=== PATIENT | female | born 1990 | race Caucasian/White ===

== ENCOUNTER 2023-03-02 14:26 | Emergency (ER) | payer SELFPAY ==
[2023-03-02 14:30] VITALS: BP 142/87; PULSE 73; RESP 18; TEMP 36.8; O2SAT 99; BMI 32.8
--- NOTE | 2023-03-02 14:44 | ED_ITS ---
Documented by User: Susy Thomas PA-C 03/02/23 16:04 HPI - Back Pain/Injury General: Chief Complaint: Back Pain/Injury Stated Complaint: low back pain Time Seen by Provider: 03/02/23 14:37 Source: patient and family Mode of arrival: ambulatory Limitations: no limitations History of Present Illness: 33-year-old female with a history of kidney stones, pyelonephritis, and cervical lesions presents to the ER with low back pain that is now radiating up into the mid back x1 week. Patient reports it started as a dull achy low back pain and now has moved up on the right side to the mid back. Patient reports it is worse with movement but hurts all the time. She has had some nausea but no vomiting. Denies any fevers but reports some chills. Patient denies any pain with urination or blood in her urine. Patient denies any urinary frequency. Patient denies any pain with intercourse or abnormal vaginal bleeding. Patient reports she had an abnormal Pap about a year ago with a cone biopsy however the results were indeterminate and she was supposed to follow-up but never did. Patient has been taking ibuprofen with minimal improvement in her pain. Review of Systems General: Reports: 10 or more systems reviewed and unremarkable except in HPI and below Physical Exam Const: COMMON NORMALS: no acute distress, average body habitus, patient oriented x3, no limitations, healthy appearing, alert and well nourished HENMT: COMMON NORMALS: normocephalic, atraumatic, external ears normal, Normal nasal mucous membranes and turbinates present and moist oral mucous membranes; dentition not normal (poor dentition) HEAD & SCALP: normocephalic and atraumatic NOSE: Normal nasal mucous membranes and turbinates present EXTERNAL EAR: Yes external ears normal Eye: COMMON NORMALS: conjunctivae normal CONJUNCTIVA: Yes conjunctivae normal Resp: COMMON NORMALS: normal respiratory effort, No retractions and clear to auscultation bilaterally AUSCULTATION: clear to auscultation bilaterally Cardio: COMMON NORMALS: regular rate, regular rhythm and No murmurs present (Cardio) RATE: regular rate RHYTHM: regular rhythm GI: COMMON NORMALS: Normal to inspection, nondistended, normoactive bowel sounds present, Soft to palpation and non-tender PALPATION: Yes Soft to palpation : COMMON NORMALS: Yes no CVA tenderness BLADDER/KIDNEY EXAM: Yes no CVA tenderness and No CVA tenderness Back/Pelvis: COMMON NORMALS: no CVA tenderness GENERAL BACK: No CVA tenderness and Yes tenderness (R para spinal muscles, midline pain in the area of L1-L3 to palpation) Extremity: COMMON NORMALS: normal to inspection, full ROM and no pedal edema Neuro: COMMON NORMALS: patient oriented x3 SENSORIUM/ORIENTATION: Yes alert Psych: COMMON NORMALS: mental status grossly normal, Normal thought process present and cooperative THOUGHT PROCESS: Normal thought process present Skin: COMMON NORMALS: no rashes or lesions noted and no wounds GENERAL SKIN EXAM: no rashes or lesions noted Course ED course: Patient presents to the ER with low back pain that radiates into the right mid back for the last week or so. Pain is worsening and the radiation is a new thing. She does have a history of kidney stones x1, pyelonephritis, and cervical abnormalities. Patient did not follow-up on the cone biopsy she had done a year ago. She reports no urinary symptoms today. Denies blood in the urine or increased urgency or frequency. We will get labs in addition to a UA and L-spine x-ray in the ER today. Patient appears very stable and not in any distress. Patient is moving on the bed without any major discomfort. Vital Signs: Vital signs: Vital Signs Temperature 98.2 F 03/02/23 14:30 Pulse Rate 73 03/02/23 14:30 Respiratory Rate 18 03/02/23 14:30 Blood Pressure 142/87 03/02/23 14:30 Pulse Oximetry 99 03/02/23 14:30 Oxygen Delivery Me thod Room Air 03/02/23 14:30 MDM - Back Pain/Injury Medical Decision Making Patient has a slightly bumped white count but is afebrile. She also was noted to have some white blood cells and bacteria in her urine. Blood is not noted in the urine. On x-ray patient is noted to have slight degenerative disc disease. We are going to treat patient for UTI at this time based on these findings. We will do Rocephin IM in the ER followed by Tracee for the next 5 days. Patient encouraged to push fluids. Take ibuprofen for pain. Warm, moist heat recommended on the low back. If symptoms or not improving in 3 to 5 days, follow-up with PCP. Return to the ER with any new or worsening symptoms. Patient verbalized understanding and was in agreement with the treatment plan. Labs 03/02/23 14:50 03/02/23 14:50 Radiology Impressions Lumbar Spine X-Ray 03/02/23 14:44 IMPRESSION: No acute findings. Slight degenerative disc disease at L5-S1. Laboratory Results WBC 12.25 10^3/uL (3.29-11.43) H 03/02/23 14:50 RBC 4.56 10^6/uL (3.85-5.65) 03/02/23 14:50 Hgb 14.20 g/dL (11.27-16.99) 03/02/23 14:50 Hct 42.5 % (36-47) 03/02/23 14:50 MCV 93.2 fl (85-98) 03/02/23 14:50 MCH 31.1 pg (27-33) 03/02/23 14:50 MCHC 33.4 g/dL (30-55) 03/02/23 14:50 RDW 12.3 % (12.1-15.1) 03/02/23 14:50 Plt Count 272 10^3/cmm (157-399) 03/02/23 14:50 MPV 10.3 fL (7.4-10.4) 03/02/23 14:50 Neut % (Auto) 77.9 % 03/02/23 14:50 Lymph % (Auto) 17.2 % 03/02/23 14:50 [place] % (Auto) 3.8 % 03/02/23 14:50 Eos % (Auto) 0.5 % 03/02/23 14:50 Baso % (Auto) 0.2 % 03/02/23 14:50 Neut # (Auto) 9.54 10^3/uL (1.8-7.7) H 03/02/23 14:50 Lymph # (Auto) 2.1 10^3/uL (0.8-4.8) 03/02/23 14:50 [place] # (Auto) 0.5 10^3/uL (0.2-0.9) 03/02/23 14:50 Eos # (Auto) 0.1 10^3/uL (0.0-0.8) 03/02/23 14:50 Baso # (Auto) 0.0 10^3/uL (0.0-0.1) 03/02/23 14:50 Nucleated RBC % (auto) 0 % 03/02/23 14:50 Nucleated RBCs # 0.0 /100WBC 03/02/23 14:50 Sodium 137 mmol/L (136-145) 03/02/23 14:50 Potassium 4.1 mmol/L (3.5-5.1) 03/02/23 14:50 Chloride 104 mmol/L (98-107) 03/02/23 14:50 Carbon Dioxide 24 mmol/L (22-29) 03/02/23 14:50 Anion Gap 13.1 (5-19) 03/02/23 14:50 BUN 15 mg/dL (6-20) 03/02/23 14:50 Creatinine 0.7 mg/dL (0.5-0.9) 03/02/23 14:50 GFR Calculation 95.2 mL/min (90-130) 03/02/23 14:50 Glucose 89 mg/dL (65-115) 03/02/23 14:50 Calculated Osmolality 284 mOsm/kg (285-295) L 03/02/23 14:50 Calcium 9.2 mg/dL (8.5-10.5) 03/02/23 14:50 HCG, Qual Negative (Negative) 03/02/23 14:43 Urine Color Yellow (Yellow) 03/02/23 14:43 Urine Appearance Hazy (CLEAR) A 03/02/23 14:43 Urine pH 5 (5-7) 03/02/23 14:43 Ur Specific [place] 1.015 (1.005-1.030) 03/02/23 14:43 Urine Protein Neg (Negative) 03/02/23 14:43 Urine Glucose (UA) Norm (Normal) 03/02/23 14:43 Urine Ketones Negative (Negative) 03/02/23 14:43 Urine Blood Neg (Negative) 03/02/23 14:43 Urine Nitrate Negative (Negative) 03/02/23 14:43 Urine Bilirubin Neg (Negative) 03/02/23 14:43 Urine Urobilinogen Norm mg/dL (Negative) 03/02/23 14:43 Ur Leukocyte Esterase 1+ (Negative) H 03/02/23 14:43 Urine RBC 0-4 /hpf (0-2) H 03/02/23 14:43 Urine WBC 10-15 /hpf (0-5) H 03/02/23 14:43 Ur Squamous Epith Cells 15-25 /hpf (0-5) H 03/02/23 14:43 Amorphous Sediment Not Reportable 03/02/23 14:43 Urine Bacteria 3+ /hpf (NONE) H 03/02/23 14:43 All radiology interpretation(s) finalized by discharge Critical Care Time Critical Care Time: Critical Care Time: No Discharge Plan Discharge Patient Disposition: Home Clinical Impression: UTI (urinary tract infection) Qualifiers: Urinary tract infection type: acute cystitis Hematuria presence: without hematuria Qualified Code(s): N30.00 - Acute cystitis without hematuria Low back pain Qualifiers: Chronicity: chronic Back pain laterality: right Sciatica presence: without sciatica Qualified Code(s): M54.50 - Low back pain, unspecified Condition: Stable Prescriptions: New Cipro 250 mg tablet 250 mg PO BID 5 Days Qty: 10 0RF No Action ibuprofen 200 mg Capsule 800 mg PO Q6H PRN (Reason: Pain) Discharge Orders: Discharge ED (Routine); Ordered 03/02/23 Ordered By: Susy Thomas Discharge Diet: Usual diet Discharge Activity: Resume usual activity Patient Instructions: Opioid Safety, Pain Management Activity Restrictions/Additional Instructions: Push fluids. Take antibiotics as prescribed. Warm, moist heat recommended on low back. Stretching exercises recommended. Take anti-inflammatories for pain. Follow-up with PCP in 3 to 5 days if no improvement in symptoms. Return to the ER with new or worsening symptoms. Coding Level of Care Code ED Cluster Bore Operator for [place] Fwd Documented by User: Liborio Ghotra DO 03/02/23 16:05 HPI - Back Pain/Injury General: Chief Complaint: Back Pain/Injury Stated Complaint: low back pain Time Seen by Provider: 03/02/23 14:37 Course Vital Signs: Vital signs: Vital Signs Temperature 98.2 F 03/02/23 14:30 Pulse Rate 73 09/24/23 14:30 Respiratory Rate 18 03/02/23 14:30 Blood Pressure 142/87 03/02/23 14:30 Pulse Oximetry 99 03/02/23 14:30 Oxygen Delivery Me thod Room Air 03/02/23 14:30 MDM - Back Pain/Injury Medical Decision Making Patient has a slightly bumped white count but is afebrile. She also was noted to have some white blood cells and bacteria in her urine. Blood is not noted in the urine. On x-ray patient is noted to have slight degenerative disc disease. We are going to treat patient for UTI at this time based on these findings. We will do Rocephin IM in the ER followed by Tracee for the next 5 days. Patient encouraged to push fluids. Take ibuprofen for pain. Warm, moist heat recommended on the low back. If symptoms or not improving in 3 to 5 days, follow-up with PCP. Return to the ER with any new or worsening symptoms. Patient verbalized understanding and was in agreement with the treatment plan. Chart reviewed and patient discussed with midlevel. Agree with assessment and plan. Labs 03/02/23 14:50 03/02/23 14:50 Radiology Impressions Lumbar Spine X-Ray 03/02/23 14:44 IMPRESSION: No acute findings. Slight degenerative disc disease at L5-S1. Laboratory Results WBC 12.25 10^3/uL (3.29-11.43) H 03/02/23 14:50 RBC 4.56 10^6/uL (3.85-5.65) 03/02/23 14:50 Hgb 14.20 g/dL (11.27-16.99) 03/02/23 14:50 Hct 42.5 % (36-47) 03/02/23 14:50 MCV 93.2 fl (85-98) 03/02/23 14:50 MCH 31.1 pg (27-33) 03/02/23 14:50 MCHC 33.4 g/dL (30-55) 03/02/23 14:50 RDW 12.3 % (12.1-15.1) 03/02/23 14:50 Plt Count 272 10^3/cmm (157-399) 03/02/23 14:50 MPV 10.3 fL (7.4-10.4) 03/02/23 14:50 Neut % (Auto) 77.9 % 03/02/23 14:50 Lymph % (Auto) 17.2 % 03/02/23 14:50 [place] % (Auto) 3.8 % 03/02/23 14:50 Eos % (Auto) 0.5 % 03/02/23 14:50 Baso % (Auto) 0.2 % 03/02/23 14:50 Neut # (Auto) 9.54 10^3/uL (1.8-7.7) H 03/02/23 14:50 Lymph # (Auto) 2.1 10^3/uL (0.8-4.8) 03/02/23 14:50 [place] # (Auto) 0.5 10^3/uL (0.2-0.9) 03/02/23 14:50 Eos # (Auto) 0.1 10^3/uL (0.0-0.8) 03/02/23 14:50 Baso # (Auto) 0.0 10^3/uL (0.0-0.1) 03/02/23 14:50 Nucleated RBC % (auto) 0 % 03/02/23 14:50 Nucleated RBCs # 0.0 /100WBC 03/02/23 14:50 Sodium 137 mmol/L (136-145) 03/02/23 14:50 Potassium 4.1 mmol/L (3.5-5.1) 03/02/23 14:50 Chloride 104 mmol/L (98-107) 03/02/23 14:50 Carbon Dioxide 24 mmol/L (22-29) 03/02/23 14:50 Anion Gap 13.1 (5-19) 03/02/23 14:50 BUN 15 mg/dL (6-20) 03/02/23 14:50 Creatinine 0.7 mg/dL (0.5-0.9) 03/02/23 14:50 GFR Calculation 95.2 mL/min (90-130) 03/02/23 14:50 Glucose 89 mg/dL (65-115) 03/02/23 14:50 Calculated Osmolality 284 mOsm/kg (285-295) L 03/02/23 14:50 Calcium 9.2 mg/dL (8.5-10.5) 03/02/23 14:50 HCG, Qual Negative (Negative) 03/02/23 14:43 Urine Color Yellow (Yellow) 03/02/23 14:43 Urine Appearance Hazy (CLEAR) A 03/02/23 14:43 Urine pH 5 (5-7) 03/02/23 14:43 Ur Specific [place] 1.015 (1.005-1.030) 03/02/23 14:43 Urine Protein Neg (Negative) 03/02/23 14:43 Urine Glucose (UA) Norm (Normal) 03/02/23 14:43 Urine Ketones Negative (Negative) 03/02/23 14:43 Urine Blood Neg (Negative) 03/02/23 14:43 Urine Nitrate Negative (Negative) 03/02/23 14:43 Urine Bilirubin Neg (Negative) 03/02/23 14:43 Urine Urobilinogen Norm mg/dL (Negative) 03/02/23 14:43 Ur Leukocyte Esterase 1+ (Negative) H 03/02/23 14:43 Urine RBC 0-4 /hpf (0-2) H 03/02/23 14:43 Urine WBC 10-15 /hpf (0-5) H 03/02/23 14:43 Ur Squamous Epith Cells 15-25 /hpf (0-5) H 03/02/23 14:43 Amorphous Sediment Not Reportable 03/02/23 14:43 Urine Bacteria 3+ /hpf (NONE) H 03/02/23 14:43 Discharge Plan Discharge Patient Disposition: Home Clinical Impression: UTI (urinary tract infection) Qualifiers: Urinary tract infection type: acute cystitis Hematuria presence: without hematuria Qualified Code(s): N30.00 - Acute cystitis without hematuria Low back pain Qualifiers: Chronicity: chronic Back pain laterality: right Sciatica presence: without sciatica Qualified Code(s): M54.50 - Low back pain, unspecified Condition: Stable Prescriptions: New Cipro 250 mg tablet 250 mg PO BID 5 Days Qty: 10 0RF No Action ibuprofen 200 mg Capsule 800 mg PO Q6H PRN (Reason: Pain) Discharge Orders: Discharge ED (Routine); Ordered 03/02/23 Ordered By: Susy Thomas Discharge Diet: Usual diet Discharge Activity: Resume usual activity Patient Instructions: Opioid Safety, Pain Management Activity Restrictions/Additional Instructions: Push fluids. Take antibiotics as prescribed. Warm, moist heat recommended on low back. Stretching exercises recommended. Take anti-inflammatories for pain. Follow-up with PCP in 3 to 5 days if no improvement in symptoms. Return to the ER with new or worsening symptoms. Coding Level of Care Code ED Cluster Bore Operator for Ricardo Meraz
--- NOTE | 2023-03-02 14:44 | XRR_ITS ---
PROCEDURE INFORMATION: Exam: XR Lumbosacral Spine Exam date and time: 03/02/2023 3:08 PM Age: 33 years old Clinical indication: Low back pain TECHNIQUE: Imaging protocol: Radiologic exam of the lumbosacral spine. Views: 2 or 3 views. COMPARISON: No relevant prior studies available. FINDINGS: Bones/joints: Slight degenerative disc disease at L5-S1. Incidental note is made of unfused posterior elements at S1. Soft tissues: Unremarkable. Organs: Previous cholecystectomy. XR/XR lumbar spine 2-3V* [id number] IMPRESSION: No acute findings. Slight degenerative disc disease at L5-S1.
[2023-03-02 15:09] LABS: Basophils % 0.2 %; Eosinophils # 0.1 10^3/uL (0.0-0.8); Eosinophils % 0.5 %; Hematocrit 42.5 % (36-47); Lymphocytes # 2.1 10^3/uL (0.8-4.8); Lymphocytes % 17.2 %; Mean Corpuscular HGB Conc 33.4 g/dL (30-55); Mean Corpuscular Hemoglobin 31.1 pg (27-33); Mean Corpuscular Volume 93.2 fl (85-98); Mean Platelet Volume 10.3 fL (7.4-10.4); Monocytes # 0.5 10^3/uL (0.2-0.9); Monocytes % 3.8 %; Neutrophils # 9.54 10^3/uL (1.8-7.7); Neutrophils % 77.9 %; Nucleated Red Blood Cells % 0 %; Platelet Count 272 10^3/cmm (157-399); Red Blood Count 4.56 10^6/uL (3.85-5.65); Red Cell Distribution Width 12.3 % (12.1-15.1); White Blood Count 12.25 10^3/uL (3.29-11.43)
[2023-03-02 15:12] LABS: HCG Qualitative Urine. Negative (Negative)
[2023-03-02 15:17] LABS: Add Urine Culture? No; Add Urine Microscopic? YES; Bacteria Urine 3+ /hpf; Bilirubin Urine Neg (Negative); Blood Urine Neg (Negative); Glucose Urine UA Norm (Normal); Ketones Urine Negative (Negative); Leukocyte Esterase Urine 1+ (Negative); Nitrate Urine Negative (Negative); Protein Urine Neg (Negative); RBC Urine 0-4 /hpf (0-2); Specific Gravity, Urine 1.015 (1.005-1.030); Squamous Epithelial Cell Urine 15-25 /hpf (0-5); Urine Appearance Hazy (CLEAR); Urine Color Yellow (Yellow); Urobilinogen Urine Norm (Negative); pH Urine 5 (5-7)
[2023-03-02 15:32] LABS: Anion Gap 13.1 (5-19); Blood Urea Nitrogen 15 mg/dL (6-20); Calcium 9.2 mg/dL (8.5-10.5); Carbon Dioxide 24 mmol/L (22-29); Chloride 104 mmol/L (98-107); Glomerular Filtration Rate 95.2 mL/min (90-130); Glucose 89 mg/dL (65-115); Osmolality Calculated 284 mOsm/kg (285-295); Potassium 4.1 mmol/L (3.5-5.1); Sodium 137 mmol/L (136-145)
[2023-03-02] MEDS: cefTRIAXone 1,000 MG in water for injection-sterile 2.1 ML 2.1 MG IM (16:10)
== END 2023-03-02 16:38 | disposition home or self-care (01) ==
PROVIDERS: Emergency Provider Physician Assistant
DX: M54.50 Low back pain, unspecified (principal); N30.00 Acute cystitis without hematuria; M51.37 Other intervertebral disc degeneration, lumbosacral region
CPT/HCPCS: 72100; 80048; 81001; 81025; 85025; 96372; 99284; J0696